=== PATIENT | female | born 1985 | race Two or more races ===

== ENCOUNTER 2016-07-11 00:34 | Emergency (ER) | payer SELFPAY ==
[~2016-07-11] VITALS: Ht 170.2 cm; Wt 76.2 kg
[2016-07-11 00:50] VITALS: BP 131/100
== END 2016-07-11 02:40 | disposition left against medical advice (07) ==
LOC: ER 00:36
DX: M54.9 Dorsalgia, unspecified (principal); G89.29 Other chronic pain; Z53.21 Procedure and treatment not carried out due to patient leaving prior to being seen by health care provider